=== PATIENT | male | born 1945 | race Caucasian/White ===

== ENCOUNTER 2022-01-26 05:15 | Observation (INO) ==
--- NOTE | 2022-01-16 14:02 | Anesthesiology Consultation ---
Date of Service January 16, 2022 Assessment & Plan (1) Encounter for pre-operative examination: COVID screening: Per assessment on 01/16: No known COVID-19 positive contacts or current COVID-19 related symptoms. Travel screen negative x 2+ weeks. Patient vaccinated. At surgeon discretion if preop Covid testing being done. Chart Review Chart Review: Acceptable Risk for Surgery (pending evaluation AM DOS) and Patient NOT seen in Pre Admission Testing History Surgery Operation Date: 01/26/22 11:50 Proposed Procedures p Laparoscopic Robotic Assisted Radical Retropubic Prostatectomy, Possible Open, Possible Pelvic Lymph Node Dissection, Possible Suprapubic Tube Placement - Greg Elliott MD Operation Date: 01/26/22 12:10 Proposed Procedures p Laparoscopic Robotic Assisted Radical Retropubic Prostatectomy, Possible Open, Possible Pelvic Lymph Node Dissection, Possible Suprapubic Tube Placement - Greg Elliott MD Height/Weight Height: 5 ft 11 in Weight: 90.718 kg Allergies Allergy/AdvReac Type Severity Reaction Status Date / Time No Known Allergies Allergy Verified 12/29/21 08:31 Medications Home Medications Medication Instructions Recorded Confirmed Last Taken dorzolamide 2 % eye drops 1 drp ophthalmic (eye) BID 11/15/21 01/16/22 Unknown latanoprost 0.005 % eye drops 1 drp ophthalmic (eye) HS 11/15/21 01/16/22 Unknown ciprofloxacin HCl 500 mg tablet 500 mg PO Q12H UTI #20 tabs 01/09/22 01/16/22 Unknown Past Medical History Medical History BPH (benign prostatic hyperplasia) Glaucoma Nausea after anesthesia Nephrolithiasis Prostate cancer Past Family History Family History Mother Hypertension Heart disease Brother Heart disease Diabetes Father No problems noted. Brother Skin cancer Brother No problems noted. Uncle Prostate cancer Brachytherapy Unknown Prostate cancer RT Other Has no children Past Surgical History Surgical History H/O colonoscopy History of cholecystectomy History of cystoscopy History of eye surgery bilateral History of tonsillectomy Hx of lithotripsy Social History Smoking Status: Never smoker Do You Dip or Chew Tobacco: No Alcohol Intake Frequency Comment: quit 07/05/91 Hx Substance Use: No substance use type: does not use Lab Results Anesthesia Preop Results Results Anesthesia Widget: Na 140 mmol/L (136-145) 12/26/21 K 4.2 mmol/L (3.5-5.1) 12/26/21 Cl 109 mmol/L H 12/26/21 CO2 26.6 mmol/L (21-32) 12/26/21 BUN 19.8 mg/dL H 12/26/21 Creat 1.20 mg/dL (0.6-1.4) 12/26/21 Glucose Level 88 mg/dL (70-99) 12/26/21 Testing Laboratory Results 01/04/22 URINE CULTURE > 100K serratia marcescens, 6K pseudomonas aeruginosa, > 100K Enterococcus faecalis 11/21/21 WBC 6.15 H/H 13.9/41.3 PLT 161 Electrocardiogram Date: 11/19/21 ST at 111bpm. LAD. iRBBB. Done during hospital evaluation > sepsis per impression/plan of hospital [facility] rds* Chest X-Ray Date: 11/19/21 Findings: + NAD
[2022-01-26] MEDS ORDERED: ceFAZolin 2000MG 2,000 MG/15 ML SYR IV SCH (06:00)
[2022-01-26] MEDS ORDERED: HEPARIN SOD 5,000 UNIT/0.5 ML VIAL SQ SCH (06:00)
[2022-01-26] MEDS ORDERED: LR 15ML/HR IV SCH (06:00)
[2022-01-26] MEDS ORDERED: LACTATED RINGER'S 1,000 ML IV SCH (06:00)
[2022-01-26] MEDS ORDERED: fentaNYL citrate 100 MCG/2 ML VIAL ONE (06:22)
[2022-01-26] MEDS ORDERED: ROCURONIUM BROMIDE 10 MG/ML 5 ML VIAL IV ONE ×10 (06:22→11:06)
[2022-01-26] MEDS ORDERED: LIDOCAINE 2% MPF LOCAL 5 ML VIAL INFIL ONE (06:22)
[2022-01-26] MEDS ORDERED: MIDAZOLAM HCL 1 MG/ML 2ML VIAL ONE (06:22)
[2022-01-26] MEDS ORDERED: PROPOFOL IV EMULSION 10 MG/ML 20 ML VIAL IV ONE (06:22)
[2022-01-26] MEDS ORDERED: ACETAMINOPHEN 1000 MG/100 ML IV IV ONE (06:37)
[2022-01-26] MEDS ORDERED: ONDANSETRON INJ 2 MG/ML 2 ML VIAL IV PRN ×2 (06:38→14:22)
[2022-01-26] MEDS ORDERED: fentaNYL citrate 100 MCG/2 ML VIAL IV PRN (06:38)
[2022-01-26] MEDS ORDERED: ATROPINE SULFATE 0.1 MG/ML 10ML SYR IV PRN (06:38)
[2022-01-26] MEDS ORDERED: ePHEDrine sulfate 50 MG/ML AMP IV PRN (06:38)
--- NOTE | 2022-01-26 06:41 | History & Physical Bridge Note ---
Date of Service January 26, 2022 History & Physical Bridge Note I have examined the patient, reviewed the History & Physical and in the interval since the performance of the History & Physical I have noted the following changes of clinical significance: no changes noted
[2022-01-26] MEDS ORDERED: BUPIVACAINE 0.5 % 5 MG/1 ML MPF 30ML VIAL ONE (07:05)
[2022-01-26] MEDS ORDERED: DEXAMETHASONE SOD INJ 4 MG/ML VIAL ONE (07:53)
[2022-01-26] MEDS ORDERED: BELLADONNA/OPIUM SUPP 60 MG SUPP PR ONE ×2 (08:19→09:13)
[2022-01-26] MEDS ORDERED: HYDROmorphone INJ 2 MG/ML SYR/VIAL ONE (08:20)
[2022-01-26] MEDS ORDERED: LABETALOL HCL IV 5 MG/ML 20ML IV ONE (08:30)
[2022-01-26] MEDS ORDERED: ONDANSETRON INJ 2 MG/ML 2 ML VIAL ONE (08:50)
[2022-01-26] MEDS ORDERED: NEOSTIGMINE METHYLSULFATE 1 MG/ML 10ML VIAL ONE (09:05)
[2022-01-26] MEDS ORDERED: GLYCOPYRROLATE 0.2 MG/ML VIAL ONE (09:05)
[2022-01-26] MEDS ORDERED: FLOSEAL HEMOSTATIC MATRIX 10ML TOP ONE (09:14)
[2022-01-26] MEDS ORDERED: SURGICEL ABSORB HEMOSTAT 2IN X 14IN TOP ONE (11:22)
[2022-01-26] MEDS ORDERED: ceFAZolin 330 MG/ML 1 GM VIAL ONE (11:22)
[2022-01-26] MEDS ORDERED: ceFAZolin 1000MG 1,000 MG/7.5 ML SYR IV ONE (11:26)
--- NOTE | 2022-01-26 13:38 | Operative Report ---
PG Post Operative Report Pre & Post Diagnosis Operation Date: 01/26/22 07:30 Pre-Op Diagnosis: Prostate Cancer Post-Op Diagnosis: Prostate Cancer I identified the patient and participated in the time-out.: Yes Procedure Operation Date: 01/26/22 07:30 Actual Procedures p Robotic Laparoscopic Assisted Prostatectomy, Pelvic Lymph Node Dissection(Not Applicable) - Greg Elliott MD Surgeon Greg Elliott MD Marzipan Molder ZULEMA Cruz Estimated Blood Loss 200 Findings Consistent with Post-Op Diagnosis Specimens 1) fat over prostate 2) prostate, left vas deferens and left seminal vesicle with stubs of the right side 3) right pelvic lymph nodes 4) left pelvic lymph nodes Drains Brar catheter per urethra Anesthesia Type General Complications none Disposition Accompanied Patient To Recovery: Yes Disposition: Recovery Room Indications This is a 76-year-old male with history of urinary retention and prostate cancer. He was seen in the urology office at which point we discussed treatment of his prostate cancer with radical prostatectomy or radiation therapy. Due to his concurrent urinary retention, he wished to proceed with robot-assisted radical prostatectomy and he presents to the OR today for this procedure. Description of Procedure The patient was identified in the preoperative holding area and informed consent was confirmed. He was then brought to the operating room where general anesthesia was initiated. He was placed supine on the operating room table with all pressure points appropriately padded. His abdomen and genitalia were prepped and draped in the usual sterile fashion and a timeout was performed. A 2 cm incision was made above the umbilicus and then a Veress needle was used to obtain access to the abdomen. Proper position was confirmed with the drop test and low initial insufflation pressure. The abdomen was insufflated with CO2 to a pressure of 12 mmHg. An 8 mm robotic port was placed in the incision and the robotic camera was inserted. The abdominal cavity was surveyed, demonstrating no injury to the abdominal viscera. There was mild adhesions in the left lower quadrant. The remaining robotic ports were placed under direct visualization, with 2 robotic ports on the left side and 1 robotic port on the right. A 12 mm customer service assistant port was placed on the right side as well, and a 5 mm customer service assistant port was placed in the right upper quadrant. The robot was then docked. The left lower quadrant adhesions were divided sharply so the colon and rectum could be mobilized from the pelvis. Using electrocautery, the bladder was then dropped from the anterior wall of the abdomen, exposing the space of Retzius. This dissection was carried down to ex pose the pelvic brim and subsequently the anterior surface of the prostate and the endopelvic fascia. The fat overlying the anterior of the prostate was removed and sent for pathologic analysis, labeled as 'fat over prostate'. The endopelvic fascia was then divided on each side to expose the lateral aspects of the prostate and the lateral aspects of the pedicles. V-Loc suture was used to ligate the dorsal venous complex to prevent backbleeding in subsequent steps. The fourth arm of the robot was then used to put some gentle traction on the bladder, and the bladder neck was identified. Using electrocautery, the anterior bladder neck was dissected to expose the Brar catheter, whose tip was removed from the bladder and held anteriorly. Upon further inspection he appeared to have a large median lobe of the prostate, as well as bilobar prostatic hyperplasia. My initial resection of the posterior bladder neck seem to be veering into this median lobe, so the plan was then restarted to incorporate what appeared to be prostate tissue. The posterior bladder neck dissection was then completed. The left vas deferens and seminal vesicle were identified and dissected free. The vas deferens were cauterized and then divided. Inspection did not identify a clear right vas deferens or right seminal vesicle. The tissue on the right was slightly more inflamed and scarred in place. As the right pedicle became more visible, there appeared to be some portions of likely seminal vesicle but a clear plane could not be identified and therefore I elected to just come across the seminal vesicle. Denonvilliers fascia was then divided and the posterior prostate dissection was carried up as far as possible toward the urethra. The pedicles were then divided using combination of clips and sharp dissection, trying to use minimal electrocautery. A partial nerve sparing approach was used bilaterally. Attention was turned anteriorly and the dorsal venous complex was divided using sharp dissection and electrocautery. I used 3-0 V-Lock suture to close the dorsal venous complex. The urethra was isolated and then divided sharply. At this point, the prostate was free and was placed in a specimen bag. Bilateral pelvic lymph node dissection was then performed, and the paulina tissue was sent for pathologic analysis. The pelvis was inspected and meticulous hemostasis was ensured with judicious use of cautery and interrupted 4-0 Monocryl sutures. Double-armed V-Loc suture was then used to re-anastomose the bladder neck with the urethra. Once this was complete, the anastomosis was tested by instilling 120 mL of normal saline into the bladder. Satisfied that the anastomosis was watertight, the catheter balloon was inflated with 10 mL of normal saline. The robot was then undocked. The supraumbilical incision was extended and the prostate was extracted. 0 Vicryl suture was then used to close the fascia at this incision. All skin incisions were closed with 4-0 Monocryl suture and then a layer of Dermabond was applied. All sponge and instrument counts were correct at the end of the case. The patient was then awakened from anesthesia and was brought to the PACU in s table condition. ZULEMA Cruz, acted as the bedside customer service assistant for the duration of the case. She provided assistance with gaining access, suction, providing traction, passing sutures and clips as well as extracting the specimen and with final closure. I attest to the content of the Intraoperative Record and any orders documented therein. Any exceptions are noted below.
--- NOTE | 2022-01-26 14:01 | Anesthesiology Progress Note ---
Date of Service January 26, 2022 Anesthesia Post Procedure Vital Signs Vital Signs: Temp Pulse Resp BP Pulse Ox O2 Del Method O2 Flow Rate 01/26/22 13:50 63 10 L 131/77 95 Nasal Cannula 2 01/26/22 13:40 97.2 F L 66 15 136/78 96 Nasal Cannula 4 01/26/22 13:30 65 15 138/82 97 Oxymask 5 01/26/22 13:20 70 14 142/80 H 98 Oxymask 5 01/26/22 13:11 97.7 F 70 10 L 154/81 H 97 Oxymask 5 01/26/22 05:54 98.1 F 67 20 177/94 H 98 Room Air Transfer of Care Handoff Completed per policy Notes Mental Status: alert / awake / arousable and participated in evaluation Patient Amnestic to Procedure: Yes Nausea / Vomiting: adequately controlled Pain: adequately controlled Airway Patency, RR, SpO2: stable & adequate BP & HR: stable & adequate Hydration State: stable & adequate Anesthetic Complications: no major complications apparent and Pt Satisfied with anesthetic care
[2022-01-26] MEDS ORDERED: IBUPROFEN 200 MG TAB PO PRN (14:22)
[2022-01-26] MEDS ORDERED: MoRPHine SULFATE 2 MG/ML CARP IV PRN ×2 (14:22→14:29)
[2022-01-26] MEDS ORDERED: oxyCODONE HCL IR 5 MG TAB (IMMEDIATE RELEASE) PO PRN ×2 (14:22)
[2022-01-26] MEDS ORDERED: POLYETHYLENE (MIRALAX) 17 GM PACK PO PRN (14:22)
[2022-01-26] MEDS: LACTATED RINGER'S 1,000 ML IV SCH ×2 (14:35→19:42)
[2022-01-26] MEDS: ceFAZolin 2000MG 2,000 MG/15 ML SYR IV SCH ×2 (15:36→23:21)
[2022-01-26] MEDS: ACETAMINOPHEN 325 MG TAB PO SCH (20:15)
[2022-01-26] MEDS: DOCUSATE SODIUM 100 MG CAP PO SCH (20:15)
[2022-01-26] MEDS: HEPARIN SOD 5,000 UNIT/0.5 ML VIAL SQ SCH (20:15)
[2022-01-26] MEDS: DORZOLAMIDE HCL 2% OPH SOLN 10 ML BTL OP SCH (20:51)
[2022-01-26] MEDS ORDERED: LATANOPROST 0.005% OP SOLN 2.5 ML BTL OP SCH (21:00)
[2022-01-27] MEDS: ACETAMINOPHEN 325 MG TAB PO SCH ×2 (03:09→06:39)
[2022-01-27] MEDS: LACTATED RINGER'S 1,000 ML IV SCH (05:07)
[2022-01-27 07:40] LABS: Basophils # (auto) 0.02 K/uL (0-0.2); Basophils % (auto) 0.2 %; Eosinophils # (auto) 0.01 K/uL (0-0.50); Eosinophils % (auto) 0.1 %; Hematocrit (blood only) 40.3 % (40.1-51.0); Hemoglobin 13.7 g/dl (14.0-18.0); Immature Granulocytes # (auto) 0.16 K/uL (0.00-0.02); Immature Granulocytes % (auto) 1.3 %; Lymphocytes # (auto) 1.29 K/uL (1.2-3.4); Lymphocytes % (auto) 10.7 %; Mean Corpuscular Hemoglobin 31.4 pg (25.0-34.0); Mean Corpuscular Volume 92.2 fL (80.0-100.0); Mean Platelet Volume 9.8 fL (9.4-12.4); Monocytes # (auto) 1.43 K/uL (0.24-0.82); Monocytes % (auto) 11.8 %; Neutrophils # (auto) 9.19 K/uL (1.4-6.5); Neutrophils % (auto) 75.9 %; Platelet Count 202 K/uL (130-400); RDW Coefficient of Variation 12.8 % (11.5-14.5); Red Blood Count 4.37 M/uL (4.63-6.08)
[2022-01-27] MEDS: DORZOLAMIDE HCL 2% OPH SOLN 10 ML BTL OP SCH (07:50)
[2022-01-27] MEDS: DOCUSATE SODIUM 100 MG CAP PO SCH (07:50)
[2022-01-27] MEDS: HEPARIN SOD 5,000 UNIT/0.5 ML VIAL SQ SCH (07:50)
[2022-01-27 08:22] LABS: BUN Creatinine Ratio 15.9 (10-20); Creatinine Clr Calc Pharmacy 54.8 ml/min; Est GFR (African American) 64.7 ml/min; Est GFR (Non-African American) 55.8 ml/min; Potassium 4.2 mmol/L (3.5-5.1)
--- NOTE | 2022-01-27 10:57 | Urology Progress Note ---
Date of Service January 27, 2022 Assessment & Plan (1) Prostate cancer: Plan: Postop day #1 status post robotic prostatectomy Doing extremely well Plan for discharge home with catheter Follow-up in 1 to 2 weeks as an outpatient Admission and Anticipated Discharge Date Admission Date: January 26, 2022 Subjective Doing very well this morning Minimal abdominal discomfort Ambulatory Asking for food Urine cleared overnight appropriately Vitals stable, labs stable, good urine output Physical Exam Physical Exam: Incisions appropriate Results & Data ([facility]) Vital Signs (Past 12 Hours) Vital Signs Temp Pulse Resp BP Pulse Ox O2 Del Method 01/27/22 07:58 37.1 C 68 16 157/79 H 95 Room Air 01/27/22 04:00 36.7 C 72 18 144/75 H 96 Room Air PG Care Time/CCT Total # of Minutes Spent Total Time Spent with Patient: Total time spent is greater than 50% in coordination of care (as documented) at patient's floor/unit and/or counseling patient: Coding Level of Care Code None Diagnoses Prostate cancer C61
--- NOTE | 2022-01-27 11:58 | Discharge Summary ---
Date of Service January 27, 2022 Admission HPI Per Admitting Provider 76-year-old male with recently diagnosed prostate cancer who presents for robotic prostatectomy Admission Exam Per Admitting Provider Constitutional well developed and well nourished; no acute distress Eyes + anicteric sclerae; pupils not irregular Respiratory normal respiratory effort; no respiratory distress, does not use accessory muscles and no cough Cardiovascular well perfused Gastrointestinal (Abdomen) Inspection/Auscultation: abdomen not distended Laparoscopic scars from prior cholecystectomy. Nontender to palpation. Musculoskeletal Extremities: extremities normal to inspection Skin normal turgor; no rashes and no lesions Neurologic moves all extremities and awake Psychiatric Orientation: alert and oriented x 3 Principal Diagnosis Prostate cancer Discharge Exam Incisions appropriate. Urine clear. Discharge Data Allergies Allergy/AdvReac Type Severity Reaction Status Date / Time No Known Allergies Allergy Verified 01/26/22 05:51 Procedures Performed Operation Date: 01/26/22 07:30 Actual Procedures p Robotic Laparoscopic Assisted Prostatectomy, Pelvic Lymph Node Dissection(Not Applicable) - Greg Elliott MD Operation Date: 01/26/22 12:10 <No data on this case meets the specified criteria> Hospital Course (1) Prostate cancer: Plan 76-year-old male admitted status post prostatectomy. Patient tolerated procedure well. No acute issues postoperatively. Stable overnight with good urine output. Urine remained clear. Labs appropriate. Tolerated diet. Minimal pain. Ambulated without issue. Patient was subsequently discharged home on postop day #1 with Crespo catheter. Patient was in stable condition at time of discharge. Total Time Total Time Spent Total Time Spent (In Minutes): 15 Discharge Plan Discharge Items Patient Disposition: Home - Self-Care Reason For Visit: POST OP Discharge Diagnosis: Prostate cancer Condition on Discharge: Good Activity: Per Instructions section Non-emergency contact: Surgeon and Urologist Call non-emergency contact if: your pain is not controlled Follow-up/Referrals: Greg Elliott MD [Physician] - PCP,NO [Primary Care Provider] - Diet: Regular Addtl Attending Provider Instructions: The surgery you had was: Robot-assisted radical prostatectomy with bilateral pelvic lymph node dissection. Please take all medications as prescribed and keep all follow-ups as scheduled. Please call our office at [phone] with any questions, concerns or need to reschedule appointments for any reason. We are happy to assist you. The urology office will contact you to arrange your follow-up visits. Medications: Please take all medications as prescribed. For pain control, you can take tylenol every 6 hours. You can also take ibuprofen every 6 hours. If you have been prescribed a narcotic pain medication, please take this according to the instructions on the label. You have been prescribed a single dose of antibiotics (Ciprofloxacin) to be taken 1 hour prior to your appointment for crespo catheter removal. Activity: We recommend having someone with you for the first few days after surgery to help care for you. For the first 2 weeks after surgery, we would like you to get up and walk around your house. However, we recommend limit physical activity that would increase your heart rate. This will allow your body to rest and heal. Take naps if you feel tired. Don't lift anything heavier than 10 pounds, mow the law or ride a bicycle until your follow-up appointment. Please avoid long car rides. Home Care: Unless directed otherwise, drink 6 to 8 glasses of water a day (enough to keep your urine light colored). This will also help keep a healthy flow of urine. We recommend using a stool softener such as colace or miralax for the first two weeks to avoid constipation. Crespo Catheter or Suprapubic Catheter care: Keep the catheter well secured with either a leg back or leg strap with large bag. Empty your bag when it's about half full. You may notice some blood in the bag. This is normal after surgery and while the catheter is in place. Use mild soap (such as Dove or Dial) and water to wash the catheter and the head of your penis daily, or more frequently if needed. Return to your normal diet, we encourage good protein intake to promote healing. You may shower as normal. Please avoid tub baths or soaking until catheter removed and incisions well healed. Wearing sweat pants while you have the catheter is recommended, they will be more comfortable. Follow-up We will have you come to the office in approximately 7 days for catheter removal. - Please remember to take your dose on antibiotics 1 hour prior to this appointment. We will call you with the pathology results once they are available. We will schedule an office visit in approximately 3 months with PSA prior. Your final pathology report will be discussed at your physician follow-up appointment. Call [facility] [place] at [phone] right away if you have any of the following: Chest pain or trouble breathing (call 911 or go to the hospital) Fever of 101F or higher, uncontrolled vomiting Heavy bleeding, clots, or bright red blood from the catheter Catheter that falls out or stops draining Foul-smelling discharge from your catheter Redness, swelling, warmth, or increased pain at your incision site Drainage, pus, or bleeding from your incision Pending Studies at Discharge: No Stand-Alone Forms: [facility] Medications and DC Order Prescriptions: New ciprofloxacin HCl [Cipro] 500 mg tablet 500 mg PO ONCE Qty: 1 0RF Rx Instructions: Take 1 hour prior to catheter removal Continued dorzolamide 2 % drops 1 drp ophthalmic (eye) BID latanoprost 0.005 % drops 1 drp ophthalmic (eye) HS Discharge Orders: Discharge Order (Routine); Ordered 01/27/22 Ordered By: Marilee Person Admission Data Admit Date/Time: 01/26/22 13:16 Attending Provider: Greg Elliott Admit Provider: Greg Elliott Primary Care Provider: PCP,NO Other Interventions: Discharge Summary Assessment (RN) Last Done: 01/27/22 11:32 Coding Level of Care Code D/C DAY MANAGEMENT <30 MINS Diagnoses Prostate cancer C61
== END 2022-01-27 12:06 | disposition home or self-care (01) | DRG 708 ==
LOC: ASU 05:15 → INTOOBSV 13:16 → 3W 13:16